=== PATIENT | female | born 1940 | race Caucasian/White ===

== ENCOUNTER 2016-04-08 08:57 | Observation (INO) | payer OTHER ==
[~2016-04-08] VITALS: Ht 162.6 cm; Wt 96.0 kg
[~2016-04-08 08:57] MED LIST: ADVAIR HFA120 INHALA IH; ALDACTONE25 MG PO; ALLOPURINOL100 MG PO; ASPIR 8181 M1 PO; ATENOLOL25 MG PO; CEFDINIR300 MG PO; CENTRUM SILVER1 EAC3 PO; CORDARONE200 MG PO; FLECAINIDE ACET50 MG PO; FURO40I IV; GLUCOPHAGE500 MG PO; GLUCOTROL5 MG PO; GUANFACINE HCL2 MG PO; LASIX20 MG PO; LASIX40 MG PO; LIPITOR20 MG PO; LISINOPRIL2.5 MG PO; LOPRESSOR25 MG PO; LOW DOSE ASPIRI81 M1 PO; METFORMIN HCL500 MG PO; NORVASC5 MG PO; PRADAXA75 MG PO; PROTONIX40 MG PO; SPIRIVA RESPIMAT4 GM IH; TENEX2 MG PO; TENORMIN50 MG PO; TYLENOL EXTRA500 MG PO; ZYLOPRIM100 MG PO
[2016-04-08 10:23] LABS: EOSINOPHIL (%) 1.5 % (0-5); EOSINOPHIL COUNT 0.2 K/uL (0-0.3); HEMATOCRIT 44.1 % (36.0-46.0); IMMATURE GRANULOCYTE (%) 0.2 % (0.0-0.7); IMMATURE GRANULOCYTE COUNT 0.2 K/uL; LYMPHOCYTE COUNT 1.6 K/uL (1.0-2.8); MCH 29.7 PG (29.0-34.0); MCHC 32.7 G/DL (30.0-36.0); MCV 90.9 FL (83-99); MEAN PLAT.VOLUME 11.4 uM^3 (9.5-12.4); MONOCYTE (%) 5.6 % (3-12); MONOCYTE COUNT 0.6 K/uL (0-0.8); NEUTROPHIL (%) 78.4 % (45-76); NEUTROPHIL COUNT 8.8 K/uL (1.8-6.4); PLATELET COUNT 287 K/uL (156-360); RBC DIS.WIDTH-CV 13.8 % (11.8-14.6); RBC DIS.WIDTH-SD 45.2 % (39-53); RED BLOOD COUNT 4.85 M/uL (3.80-5.20); WHITE BLOOD COUNT 11.2 K/uL (4.1-10.2)
[2016-04-08 10:28] LABS: CHLORIDE 101 mEq/L (99-109); SODIUM 140 mEq/L (136-147)
[2016-04-08 10:30] LABS: GLUCOSE 284 mg/dL (70-99)
[2016-04-08 10:32] LABS: ANION GAP 15 MEQ/L (2-14)
[2016-04-08 10:34] LABS: ALKALINE PHOSPHATASE 63 IU/L (3-129); GFR ESTIMATE (CALCULATED) 39 mL/min/
[2016-04-08 10:35] LABS: UREA NITROGEN (BUN) 22 mg/dL (9-23)
[2016-04-08 10:38] LABS: TROP-I INTERPRETATION NEGATIVE; TROPONIN-I < 0.01 ng/mL (0.0-0.30)
[2016-04-08 13:29] LABS: POINT-OF-CARE METER ID UU14100415
[2016-04-08] MEDS ORDERED: CENTRUM SILVER1 EAC3 PO (14:30)
[2016-04-08] MEDS ORDERED: LO-DOSE ASPIRIN81 M2 PO (14:31)
[2016-04-08] MEDS ORDERED: LIPITOR20 MG PO (14:32)
[2016-04-08] MEDS ORDERED: NORVASC5 MG PO (14:33)
[2016-04-08] MEDS ORDERED: GLUCOPHAGE500 MG PO (14:34)
[2016-04-08] MEDS ORDERED: PRADAXA75 MG PO (14:34)
[2016-04-08] MEDS ORDERED: LASIX40 MG PO (14:35)
[2016-04-08] MEDS ORDERED: INTUNIV2 MG PO (14:35)
[2016-04-08] MEDS ORDERED: TAMBOCOR50 MG PO (14:36)
[2016-04-08] MEDS ORDERED: DOCUSATE SODIU100 MG PO (14:37)
[2016-04-08] MEDS ORDERED: ALDACTONE25 MG PO (14:37)
[2016-04-08 15:00] VITALS: BP 142/75
[2016-04-08 18:24] LABS: TROP-I INTERPRETATION NEGATIVE; TROPONIN-I 0.02 ng/mL (0.0-0.30)
[2016-04-08 20:06] VITALS: BP 155/82
[2016-04-08 20:29] VITALS: BP 163/85
[2016-04-08 23:57] VITALS: BP 154/81
[2016-04-09 01:22] LABS: TROP-I INTERPRETATION NEGATIVE; TROPONIN-I 0.02 ng/mL (0.0-0.30)
[2016-04-09 04:23] VITALS: BP 148/78
[2016-04-09 07:00] LABS: HEMATOCRIT 40.5 % (36.0-46.0); MCH 30.2 PG (29.0-34.0); MCHC 32.6 G/DL (30.0-36.0); MCV 92.7 FL (83-99); MEAN PLAT.VOLUME 11.2 uM^3 (9.5-12.4); PLATELET COUNT 228 K/uL (156-360); RBC DIS.WIDTH-CV 13.7 % (11.8-14.6); RBC DIS.WIDTH-SD 46.4 % (39-53); RED BLOOD COUNT 4.37 M/uL (3.80-5.20); WHITE BLOOD COUNT 9.9 K/uL (4.1-10.2)
[2016-04-09 07:16] LABS: Estimated Average Glucose 160 mg/dL (70-123); HEMOGLOBIN A1c (GLYCOHEMOGLOB) 7.2 % HGB (Below 5.7)
[2016-04-09 07:31] LABS: ANION GAP 10 MEQ/L (2-14); CHLORIDE 99 MEQ/L (99-109); GFR ESTIMATE (CALCULATED) 51 mL/min/; POTASSIUM 3.7 MEQ/L (3.7-5.4); SAMPLE HEMOLYSIS CHECK 0; SAMPLE ICTERIC CHECK 0; SAMPLE LIPEMIA CHECK 0; SODIUM 142 MEQ/L (136-147); UREA NITROGEN (BUN) 23 mg/dL (9-23)
[2016-04-09 07:34] LABS: GLUCOSE 135 mg/dL (70-99)
[2016-04-09 07:46] LABS: POINT-OF-CARE METER ID UU14174216
[2016-04-09 08:20] VITALS: BP 145/69
[2016-04-09 11:29] LABS: POINT-OF-CARE METER ID UU13113698
[2016-04-09 13:00] VITALS: BP 131/67
== END 2016-04-09 15:05 | disposition home or self-care (01) ==
LOC: EME 08:57 → 4EAST 12:39 → EDOF 12:39 → 4EAST 12:39
PROVIDERS: Emergency Medicine; Internal Medicine
DX: I48.91 Unspecified atrial fibrillation (principal); I13.0 Hypertensive heart and chronic kidney disease with heart failure and stage 1 through stage 4 chronic kidney disease, or unspecified chronic kidney disease; I50.30 Unspecified diastolic (congestive) heart failure; J96.01 Acute respiratory failure with hypoxia; E11.22 Type 2 diabetes mellitus with diabetic chronic kidney disease; N18.3 Chronic kidney disease, stage 3 (moderate); E78.5 Hyperlipidemia, unspecified; E66.9 Obesity, unspecified; Z79.82 Long term (current) use of aspirin
CPT/HCPCS: 71010; 80048; 80053; 82948; 83036; 83880; 84484; 85025; 85027; 93005; 94799; 99281; 99285; G0378; J1815; J1940

== ENCOUNTER 2016-12-07 19:29 | Inpatient (IN) | payer OTHER ==
[~2016-12-07] VITALS: Ht 165.1 cm; Wt 92.8 kg
[~2016-12-07 19:29] MED LIST changes: +DOCUSATE SODIU100 MG PO; +INTUNIV2 MG PO; +LO-DOSE ASPIRIN81 M2 PO; +TAMBOCOR50 MG PO
[2016-12-07 20:20] LABS: MCH 30.1 PG (29.0-34.0); MCV 93.9 FL (83-99); MEAN PLAT.VOLUME 10.5 uM^3 (9.5-12.4); PLATELET COUNT 271 K/uL (156-360); RBC DIS.WIDTH-CV 13.1 % (11.8-14.6); RBC DIS.WIDTH-SD 44.9 % (39-53); RED BLOOD COUNT 5.22 M/uL (3.80-5.20); WHITE BLOOD COUNT 11.8 K/uL (4.1-10.2)
[2016-12-07 20:33] LABS: CHLORIDE 99 mEq/L (99-109); POTASSIUM 4.5 mEq/L (3.7-5.4); SODIUM 142 mEq/L (136-147)
[2016-12-07 20:35] LABS: GLUCOSE 119 mg/dL (70-99)
[2016-12-07 20:37] LABS: ANION GAP 18 MEQ/L (2-14)
[2016-12-07 20:39] LABS: D-DIMER ELISA < 150.00 ng/mLDDU (<230); GFR ESTIMATE (CALCULATED) 57 mL/min/
[2016-12-07 20:40] LABS: UREA NITROGEN (BUN) 18 mg/dL (9-23)
[2016-12-07 20:44] LABS: TROP-I INTERPRETATION NEGATIVE; TROPONIN-I < 0.01 ng/mL (0.0-0.30)
[2016-12-07 23:52] LABS: ADD MIUA? YES; BILIRUBIN NEGATIVE; BLOOD SMALL; COLOR STRAW ((YELLOW)); GLUCOSE (STRIP) NEGATIVE; KETONES NEGATIVE; LEUKOCYTES TRACE; NITRITE NEGATIVE; PROTEIN (STRIP) NEGATIVE; SPECIFIC GRAVITY 1.009 (1.000-1.030); UROBILINOGEN 0.2 MG/DL (0.2-1.0)
[2016-12-07 23:54] LABS: BACTERIA NONE SEEN /HPF; EPITHELIAL CELLS RARE /HPF; HYALINE CASTS 0-5 /LPF; MUCUS TRACE /LPF; RED BLOOD CELLS 0-5 /HPF (0-5); UCUL ADDED? NO; WHITE BLOOD CELLS 0-5 /HPF (0-5)
[2016-12-08 01:27] LABS: MAGNESIUM 1.6 mg/dl (1.3-2.7); SAMPLE HEMOLYSIS CHECK 1; SAMPLE ICTERIC CHECK 0; SAMPLE LIPEMIA CHECK 0
[2016-12-08 01:32] LABS: HDL CHOLESTEROL 59 MG/DL (Desirable>=50); LDL CHOLESTEROL 69 mg/dL (Desirable<100); NON-HDL CHOLESTEROL 100 mg/dL (Desirable<160); TOTAL CHOLESTEROL 159 mg/dL (Desirable<200); TRIGLYCERIDES 153 MG/DL (Normal: <150)
[2016-12-08 02:01] VITALS: BP 141/89
[2016-12-08 05:41] LABS: TROP-I INTERPRETATION NEGATIVE; TROPONIN-I < 0.01 ng/mL (0.0-0.30)
[2016-12-08 07:59] VITALS: BP 112/78
[2016-12-08 11:30] VITALS: BP 100/67
[2016-12-08 12:27] LABS: TROP-I INTERPRETATION NEGATIVE; TROPONIN-I 0.02 ng/mL (0.0-0.30)
[2016-12-08 16:37] LABS: POINT-OF-CARE METER ID UU14314088
[2016-12-08 16:56] VITALS: BP 121/89
[2016-12-08 20:00] VITALS: BP 136/98
[2016-12-08 22:37] LABS: ANION GAP 9 MEQ/L (2-14); CHLORIDE 97 MEQ/L (99-109); POTASSIUM 4.5 MEQ/L (3.7-5.4); SAMPLE HEMOLYSIS CHECK 0; SAMPLE ICTERIC CHECK 0; SAMPLE LIPEMIA CHECK 0; SODIUM 138 MEQ/L (136-147)
[2016-12-08 22:42] LABS: GFR ESTIMATE (CALCULATED) 46 mL/min/; GLUCOSE 170 mg/dL (70-99); UREA NITROGEN (BUN) 25 mg/dL (9-23)
[2016-12-08 23:43] LABS: ADD MIUA? YES; BILIRUBIN NEGATIVE; BLOOD SMALL; COLOR YELLOW ((YELLOW)); GLUCOSE (STRIP) NEGATIVE; KETONES NEGATIVE; LEUKOCYTES LARGE; NITRITE NEGATIVE; PROTEIN (STRIP) 30; SPECIFIC GRAVITY 1.017 (1.000-1.030); UROBILINOGEN 0.2 MG/DL (0.2-1.0)
[2016-12-09 00:03] LABS: BACTERIA 2+ /HPF; CASTS NONE SEEN /LPF; CRYSTALS NONE SEEN; EPITHELIAL CELLS RARE /HPF; MUCUS NONE SEEN /LPF; RED BLOOD CELLS 0-5 /HPF (0-5); UCUL ADDED? YES; WHITE BLOOD CELLS TNTC /HPF (0-5)
[2016-12-09 03:06] VITALS: BP 114/82
[2016-12-09 05:49] LABS: HEMATOCRIT 41.6 % (36.0-46.0); MCH 30.4 PG (29.0-34.0); MCHC 32.5 G/DL (30.0-36.0); MCV 93.7 FL (83-99); MEAN PLAT.VOLUME 10.7 uM^3 (9.5-12.4); PLATELET COUNT 224 K/uL (156-360); RBC DIS.WIDTH-CV 13.2 % (11.8-14.6); RBC DIS.WIDTH-SD 44.9 % (39-53); RED BLOOD COUNT 4.44 M/uL (3.80-5.20)
[2016-12-09 05:50] LABS: ALKALINE PHOSPHATASE 48 IU/L (3-129); ANION GAP 9 MEQ/L (2-14); CHLORIDE 98 MEQ/L (99-109); GFR ESTIMATE (CALCULATED) 46 mL/min/; GLUCOSE 187 mg/dL (70-99); POTASSIUM 3.9 MEQ/L (3.7-5.4); SAMPLE HEMOLYSIS CHECK 0; SAMPLE ICTERIC CHECK 0; SAMPLE LIPEMIA CHECK 0; SODIUM 140 MEQ/L (136-147); TOTAL BILIRUBIN 0.7 MG/DL (0.0-1.0); UREA NITROGEN (BUN) 23 mg/dL (9-23)
[2016-12-09 08:00] VITALS: BP 120/75
[2016-12-09 12:00] VITALS: BP 137/77
[2016-12-09 15:00] VITALS: BP 134/74
[2016-12-09 17:57] LABS: TROP-I INTERPRETATION NEGATIVE; TROPONIN-I 0.03 ng/mL (0.0-0.30)
[2016-12-09 19:14] VITALS: BP 116/78
[2016-12-09 23:08] VITALS: BP 99/57
[2016-12-10 03:48] VITALS: BP 102/62
[2016-12-10 07:10] VITALS: BP 102/56
[2016-12-10 07:58] LABS: TROP-I INTERPRETATION NEGATIVE; TROPONIN-I 0.03 ng/mL (0.0-0.30)
[2016-12-10 12:05] VITALS: BP 104/74
[2016-12-10 16:05] VITALS: BP 102/65
[2016-12-10 18:45] VITALS: BP 113/62
[2016-12-10 23:15] VITALS: BP 101/67
[2016-12-11 03:10] VITALS: BP 121/55
[2016-12-11 07:45] VITALS: BP 119/58
[2016-12-11] MEDS ORDERED: LOPRESSOR25 MG PO (10:22)
[2016-12-11] MEDS ORDERED: DILTIAZEM 24HR180 MG PO (10:22)
[2016-12-11] MEDS ORDERED: AUGMENTIN875 MG PO (10:23)
[2016-12-11 11:00] VITALS: BP 116/58
== END 2016-12-11 13:42 | disposition home or self-care (01) | DRG 309 ==
LOC: EME 19:29 → 4EAST 23:48 → EDOF 23:48 → ENRESERV 23:51 → 4EAST 12-08 02:00
PROVIDERS: Emergency Medicine; Hospitalist; Internal Medicine; Internal Medicine Cardiovascular Disease
DX: I48.1 Persistent atrial fibrillation (principal); I48.2 Chronic atrial fibrillation; N39.0 Urinary tract infection, site not specified; Z99.81 Dependence on supplemental oxygen; I11.0 Hypertensive heart disease with heart failure; I50.32 Chronic diastolic (congestive) heart failure; I27.20 Pulmonary hypertension, unspecified; J98.6 Disorders of diaphragm; K21.9 Gastro-esophageal reflux disease without esophagitis; E05.90 Thyrotoxicosis, unspecified without thyrotoxic crisis or storm; E11.9 Type 2 diabetes mellitus without complications; E78.00 Pure hypercholesterolemia, unspecified; E78.5 Hyperlipidemia, unspecified; M25.511 Pain in right shoulder; M25.512 Pain in left shoulder; E66.9 Obesity, unspecified; Z68.33 Body mass index [BMI] 33.0-33.9, adult; Z82.3 Family history of stroke
CPT/HCPCS: 71010; 80048; 80053; 80061; 81003; 82948; 83735; 83880; 84439; 84443; 84481; 84484; 85027; 85379; 87077; 87086; 87186; 93005; 93306; 94799; 99281; 99285; J0696; J1160; J1940; J2405; J7050

== ENCOUNTER 2016-12-19 23:38 | Inpatient (IN) | payer OTHER ==
[~2016-12-19] VITALS: Ht 167.6 cm; Wt 94.7 kg
[~2016-12-19 23:38] MED LIST changes: +AUGMENTIN875 MG PO; +DILTIAZEM 24HR180 MG PO
[2016-12-20 00:18] LABS: HEMATOCRIT 42.7 % (36.0-46.0); MCH 30.7 PG (29.0-34.0); MCHC 32.6 G/DL (30.0-36.0); MCV 94.3 FL (83-99); MEAN PLAT.VOLUME 10.9 uM^3 (9.5-12.4); PLATELET COUNT 278 K/uL (156-360); RBC DIS.WIDTH-CV 13.6 % (11.8-14.6); RBC DIS.WIDTH-SD 46.8 % (39-53); RED BLOOD COUNT 4.53 M/uL (3.80-5.20); WHITE BLOOD COUNT 13.6 K/uL (4.1-10.2)
[2016-12-20 00:23] LABS: INTER. NORMALIZED RATIO 1.3; PROTHROMBIN TIME 14.7 SEC (10.2-12.9)
[2016-12-20 00:38] LABS: CHLORIDE 102 mEq/L (99-109); POTASSIUM 4.4 mEq/L (3.7-5.4); SODIUM 139 mEq/L (136-147); TROP-I INTERPRETATION NEGATIVE; TROPONIN-I < 0.01 ng/mL (0.0-0.30)
[2016-12-20 00:40] LABS: GLUCOSE 203 mg/dL (70-99)
[2016-12-20 00:41] LABS: ANION GAP 12 MEQ/L (2-14)
[2016-12-20 00:44] LABS: GFR ESTIMATE (CALCULATED) 39 mL/min/
[2016-12-20 00:45] LABS: UREA NITROGEN (BUN) 33 mg/dL (9-23)
[2016-12-20] MEDS ORDERED: DILTIAZEM 24HR180 MG PO (01:50)
[2016-12-20 03:00] LABS: TOTAL BILIRUBIN 0.6 mg/dL (0.0-1.0)
[2016-12-20 03:01] LABS: ALKALINE PHOSPHATASE 80 IU/L (3-129)
[2016-12-20 03:04] LABS: DIRECT BILIRUBIN 0.2 mg/dL (0.0-0.3)
[2016-12-20 03:48] VITALS: BP 131/89
[2016-12-20 06:29] LABS: HEMATOCRIT 41.3 % (36.0-46.0); MCH 30.2 PG (29.0-34.0); MCV 94.5 FL (83-99); MEAN PLAT.VOLUME 12.2 uM^3 (9.5-12.4); NRBC (%) 0.3 /100 WBC (0-0); PLATELET COUNT 244 K/uL (156-360); RBC DIS.WIDTH-CV 13.7 % (11.8-14.6); RBC DIS.WIDTH-SD 46.9 % (39-53); RED BLOOD COUNT 4.37 M/uL (3.80-5.20); WHITE BLOOD COUNT 13.7 K/uL (4.1-10.2)
[2016-12-20 06:53] LABS: ANION GAP 9 MEQ/L (2-14); CHLORIDE 102 MEQ/L (99-109); GFR ESTIMATE (CALCULATED) 39 mL/min/; GLUCOSE 161 mg/dL (70-99); POTASSIUM 4.2 MEQ/L (3.7-5.4); SAMPLE HEMOLYSIS CHECK 0; SAMPLE ICTERIC CHECK 0; SAMPLE LIPEMIA CHECK 0; SODIUM 142 MEQ/L (136-147); UREA NITROGEN (BUN) 34 mg/dL (9-23)
[2016-12-20 06:55] LABS: TROP-I INTERPRETATION NEGATIVE; TROPONIN-I < 0.01 ng/mL (0.0-0.30)
[2016-12-20 07:17] VITALS: BP 113/74
[2016-12-20 07:29] LABS: ADD MIUA? YES; BILIRUBIN NEGATIVE; BLOOD NEGATIVE; COLOR YELLOW ((YELLOW)); GLUCOSE (STRIP) NEGATIVE; KETONES NEGATIVE; LEUKOCYTES MODERATE; NITRITE NEGATIVE; PROTEIN (STRIP) NEGATIVE; UROBILINOGEN 0.2 MG/DL (0.2-1.0)
[2016-12-20 07:41] LABS: POINT-OF-CARE METER ID UU13113781
[2016-12-20 07:45] LABS: BACTERIA RARE /HPF; EPITHELIAL CELLS RARE /HPF; HYALINE CASTS 20-30 /LPF; MUCUS TRACE /LPF; RED BLOOD CELLS 0-5 /HPF (0-5); WHITE BLOOD CELLS CLUMP RARE /HPF (0-5)
[2016-12-20 11:59] LABS: POINT-OF-CARE METER ID UU14174216
[2016-12-20 12:19] LABS: TROP-I INTERPRETATION NEGATIVE; TROPONIN-I < 0.01 ng/mL (0.0-0.30)
[2016-12-20 12:54] VITALS: BP 121/77
[2016-12-20 15:29] VITALS: BP 123/75
[2016-12-20 16:03] LABS: METH RESISTANT S AUREUS PCR NEGATIVE (NEGATIVE)
[2016-12-20 16:04] LABS: PROBE CHECK PASS; SPECIMEN PROCESSING CONTROL PASS
[2016-12-20 17:03] LABS: POINT-OF-CARE METER ID UU13113781
[2016-12-20 19:30] VITALS: BP 118/83
[2016-12-20 20:46] LABS: POINT-OF-CARE METER ID UU13113698
[2016-12-20 23:30] VITALS: BP 112/77
[2016-12-21 03:45] VITALS: BP 124/88
[2016-12-21 08:15] LABS: POINT-OF-CARE METER ID UU13113698; POINT-OF-CARE USER ID NUTSLF44
[2016-12-21 08:31] LABS: ANION GAP 9 MEQ/L (2-14); CHLORIDE 99 MEQ/L (99-109); SAMPLE HEMOLYSIS CHECK 0; SAMPLE ICTERIC CHECK 0; SAMPLE LIPEMIA CHECK 0; SODIUM 138 MEQ/L (136-147)
[2016-12-21 08:36] LABS: GFR ESTIMATE (CALCULATED) 42 mL/min/; GLUCOSE 160 mg/dL (70-99); UREA NITROGEN (BUN) 34 mg/dL (9-23)
[2016-12-21 11:53] LABS: POINT-OF-CARE METER ID UU13113698; POINT-OF-CARE USER ID NUTSLF44
[2016-12-21 12:37] VITALS: BP 129/86
[2016-12-21 15:44] VITALS: BP 130/92
[2016-12-21 16:58] VITALS: BP 155/89
[2016-12-21 17:35] LABS: POINT-OF-CARE METER ID UU14174216; POINT-OF-CARE USER ID NUTSLF44
[2016-12-21 21:17] LABS: POINT-OF-CARE METER ID UU14174216
[2016-12-21 23:00] VITALS: BP 137/92
[2016-12-22 03:50] VITALS: BP 135/77
[2016-12-22 06:03] LABS: ANION GAP 12 MEQ/L (2-14); CHLORIDE 101 MEQ/L (99-109); GFR ESTIMATE (CALCULATED) 39 mL/min/; GLUCOSE 166 mg/dL (70-99); POTASSIUM 4.2 MEQ/L (3.7-5.4); SAMPLE HEMOLYSIS CHECK 0; SAMPLE ICTERIC CHECK 0; SAMPLE LIPEMIA CHECK 0; SODIUM 141 MEQ/L (136-147); UREA NITROGEN (BUN) 36 mg/dL (9-23)
[2016-12-22 07:35] LABS: POINT-OF-CARE METER ID UU13113781
[2016-12-22 09:10] VITALS: BP 124/84
[2016-12-22 11:20] LABS: POINT-OF-CARE METER ID UU13113781
[2016-12-22 11:40] VITALS: BP 126/76
[2016-12-22 11:57] LABS: EOSINOPHIL (%) 1.4 % (0-5); EOSINOPHIL COUNT 0.2 K/uL (0-0.3); HEMATOCRIT 42.4 % (36.0-46.0); IMMATURE GRANULOCYTE (%) 0.5 % (0.0-0.7); IMMATURE GRANULOCYTE COUNT 0.1 K/uL; INSTRUMENT ABS NEUTROPHIL CT 10.8 K/uL; MCH 30.6 PG (29.0-34.0); MCHC 31.6 G/DL (30.0-36.0); MCV 96.8 FL (83-99); MEAN PLAT.VOLUME 10.8 uM^3 (9.5-12.4); MONOCYTE (%) 8.1 % (3-12); MONOCYTE COUNT 1.1 K/uL (0-0.8); NEUTROPHIL (%) 82.2 % (45-76); NEUTROPHIL COUNT 10.8 K/uL (1.8-6.4); PLATELET COUNT 254 K/uL (156-360); RBC DIS.WIDTH-CV 13.7 % (11.8-14.6); RBC DIS.WIDTH-SD 48.6 % (39-53); RED BLOOD COUNT 4.38 M/uL (3.80-5.20); WHITE BLOOD COUNT 13.1 K/uL (4.1-10.2)
[2016-12-22 12:18] LABS: ALKALINE PHOSPHATASE 64 IU/L (3-129); ANION GAP 8 MEQ/L (2-14); CHLORIDE 101 MEQ/L (99-109); GFR ESTIMATE (CALCULATED) 42 mL/min/; GLUCOSE 145 mg/dL (70-99); POTASSIUM 4.4 MEQ/L (3.7-5.4); SAMPLE HEMOLYSIS CHECK 0; SAMPLE ICTERIC CHECK 0; SAMPLE LIPEMIA CHECK 0; SODIUM 142 MEQ/L (136-147); TOTAL BILIRUBIN 0.8 MG/DL (0.0-1.0); UREA NITROGEN (BUN) 34 mg/dL (9-23)
[2016-12-22 16:23] LABS: POINT-OF-CARE METER ID UU14174216
[2016-12-22 16:55] VITALS: BP 119/87
[2016-12-22 20:00] VITALS: BP 135/90
[2016-12-22 21:05] LABS: POINT-OF-CARE METER ID UU13113698
[2016-12-23] VITALS (7 sets, daily range): BP systolic 104–133; BP diastolic 70–89
[2016-12-23 08:00] LABS: POINT-OF-CARE METER ID UU14174216; POINT-OF-CARE USER ID ENVKC36
[2016-12-23 11:46] LABS: POINT-OF-CARE METER ID UU13113781; POINT-OF-CARE USER ID ENVKC36
[2016-12-23 16:48] LABS: POINT-OF-CARE METER ID UU14174216; POINT-OF-CARE USER ID ENVKC36
[2016-12-23 21:37] LABS: POINT-OF-CARE METER ID UU14174216
[2016-12-24] VITALS (23 sets, daily range): BP systolic 97–159; BP diastolic 74–116
[2016-12-24 04:28] LABS: BASOPHIL COUNT 0.1 K/uL (0-0.1); EOSINOPHIL (%) 1.2 % (0-5); EOSINOPHIL COUNT 0.2 K/uL (0-0.3); HEMATOCRIT 43.9 % (36.0-46.0); IMMATURE GRANULOCYTE (%) 0.5 % (0.0-0.7); IMMATURE GRANULOCYTE COUNT 0.1 K/uL; INSTRUMENT ABS NEUTROPHIL CT 14.4 K/uL; MCH 30.1 PG (29.0-34.0); MCHC 31.4 G/DL (30.0-36.0); MCV 95.6 FL (83-99); MEAN PLAT.VOLUME 10.9 uM^3 (9.5-12.4); MONOCYTE (%) 7.4 % (3-12); MONOCYTE COUNT 1.3 K/uL (0-0.8); NEUTROPHIL (%) 84.5 % (45-76); NEUTROPHIL COUNT 14.4 K/uL (1.8-6.4); PLATELET COUNT 252 K/uL (156-360); RBC DIS.WIDTH-CV 13.8 % (11.8-14.6); RED BLOOD COUNT 4.59 M/uL (3.80-5.20)
[2016-12-24 04:35] LABS: CHLORIDE 103 mEq/L (99-109); POTASSIUM 4.4 mEq/L (3.7-5.4); SODIUM 142 mEq/L (136-147)
[2016-12-24 04:37] LABS: GLUCOSE 192 mg/dL (70-99)
[2016-12-24 04:39] LABS: ANION GAP 10 MEQ/L (2-14)
[2016-12-24 04:41] LABS: GFR ESTIMATE (CALCULATED) 46 mL/min/
[2016-12-24 04:42] LABS: UREA NITROGEN (BUN) 36 mg/dL (9-23)
[2016-12-24 05:22] LABS: TROP-I INTERPRETATION NEGATIVE; TROPONIN-I 0.01 ng/mL (0.0-0.30)
[2016-12-24 08:12] LABS: POINT-OF-CARE METER ID UU13113781
[2016-12-24 08:18] LABS: BASE EXCESS 5.8 mEq/L (-3 to +3); CARBOXY HGB 2.4 % (0-5); METHEMOGLOBIN 1.7 % (0-1.5); PO2 52 mm Hg (80-100); pH 7.37 (7.35-7.45)
[2016-12-24 08:19] LABS: COMMENTS - BLOOD GASES A+C+; DEVICE NRBM; O2 FLOW 15 L/MIN; PCO2 57 mm Hg (35-45); SITE RR; TOTAL RESP RATE 24 resp/min
[2016-12-24 09:24] LABS: POINT-OF-CARE METER ID UU13113803
[2016-12-24 13:35] LABS: METH RESISTANT S AUREUS PCR NEGATIVE (NEGATIVE)
[2016-12-24 13:40] LABS: PROBE CHECK PASS; SPECIMEN PROCESSING CONTROL PASS
[2016-12-24 14:08] LABS: POINT-OF-CARE METER ID UU13113803
[2016-12-24 17:49] LABS: POINT-OF-CARE METER ID UU13113803
[2016-12-24 23:38] LABS: POINT-OF-CARE METER ID UU14208751
[2016-12-25] VITALS (20 sets, daily range): BP systolic 118–165; BP diastolic 69–125
[2016-12-25 05:32] LABS: POINT-OF-CARE METER ID UU13113731
[2016-12-25 05:53] LABS: EOSINOPHIL (%) 0 % (0-5); HEMATOCRIT 41.2 % (36.0-46.0); IMMATURE GRANULOCYTE (%) 0.5 % (0.0-0.7); IMMATURE GRANULOCYTE COUNT 0.1 K/uL; INSTRUMENT ABS NEUTROPHIL CT 12.4 K/uL; LYMPHOCYTE COUNT 0.4 K/uL (1.0-2.8); MCH 30.8 PG (29.0-34.0); MEAN PLAT.VOLUME 11.4 uM^3 (9.5-12.4); MONOCYTE (%) 4.5 % (3-12); MONOCYTE COUNT 0.6 K/uL (0-0.8); NEUTROPHIL (%) 92.2 % (45-76); NEUTROPHIL COUNT 12.4 K/uL (1.8-6.4); PLATELET COUNT 253 K/uL (156-360); RBC DIS.WIDTH-CV 13.9 % (11.8-14.6); RBC DIS.WIDTH-SD 47.8 % (39-53); RED BLOOD COUNT 4.29 M/uL (3.80-5.20); WHITE BLOOD COUNT 13.4 K/uL (4.1-10.2)
[2016-12-25 06:38] LABS: ANION GAP 9 MEQ/L (2-14); CHLORIDE 103 MEQ/L (99-109); GFR ESTIMATE (CALCULATED) 51 mL/min/; GLUCOSE 217 mg/dL (70-99); POTASSIUM 4.3 MEQ/L (3.7-5.4); SAMPLE HEMOLYSIS CHECK 0; SAMPLE ICTERIC CHECK 0; SAMPLE LIPEMIA CHECK 0; SODIUM 144 MEQ/L (136-147); UREA NITROGEN (BUN) 46 mg/dL (9-23)
[2016-12-25 08:38] LABS: INTERNAL CONTROL VALID? YES
[2016-12-25 12:12] LABS: POINT-OF-CARE METER ID UU14314082
[2016-12-25 16:58] LABS: POINT-OF-CARE METER ID UU14314082
[2016-12-25 22:24] LABS: POINT-OF-CARE METER ID UU14314082
[2016-12-26] VITALS (20 sets, daily range): BP systolic 95–168; BP diastolic 72–102
[2016-12-26 08:42] LABS: POINT-OF-CARE METER ID UU14174217
[2016-12-26 10:31] LABS: HEMATOCRIT 42.8 % (36.0-46.0); MCH 31.1 PG (29.0-34.0); MCHC 31.8 G/DL (30.0-36.0); MCV 97.9 FL (83-99); MEAN PLAT.VOLUME 11.2 uM^3 (9.5-12.4); PLATELET COUNT 259 K/uL (156-360); RBC DIS.WIDTH-CV 14.1 % (11.8-14.6); RBC DIS.WIDTH-SD 50.2 % (39-53); RED BLOOD COUNT 4.37 M/uL (3.80-5.20); WHITE BLOOD COUNT 17.9 K/uL (4.1-10.2)
[2016-12-26 10:59] LABS: ANION GAP 9 MEQ/L (2-14); CHLORIDE 98 MEQ/L (99-109); GFR ESTIMATE (CALCULATED) 46 mL/min/; POTASSIUM 4.5 MEQ/L (3.7-5.4); SAMPLE HEMOLYSIS CHECK 1; SAMPLE ICTERIC CHECK 0; SAMPLE LIPEMIA CHECK 0; SODIUM 141 MEQ/L (136-147); UREA NITROGEN (BUN) 49 mg/dL (9-23)
[2016-12-26 11:04] LABS: GLUCOSE 327 mg/dL (70-99)
[2016-12-26 12:15] LABS: POINT-OF-CARE METER ID UU14174217
[2016-12-26 16:49] LABS: ADD MIUA? YES; BILIRUBIN NEGATIVE; BLOOD SMALL; COLOR YELLOW ((YELLOW)); GLUCOSE (STRIP) 50; KETONES NEGATIVE; LEUKOCYTES NEGATIVE; NITRITE NEGATIVE; PROTEIN (STRIP) 30; SPECIFIC GRAVITY 1.017 (1.000-1.030); UROBILINOGEN 0.2 MG/DL (0.2-1.0)
[2016-12-26 16:55] LABS: BACTERIA RARE /HPF; EPITHELIAL CELLS NONE SEEN /HPF; MUCUS TRACE /LPF; RED BLOOD CELLS 20-30 /HPF (0-5); UCUL ADDED? NO; WHITE BLOOD CELLS 0-5 /HPF (0-5)
[2016-12-26 18:18] LABS: POINT-OF-CARE METER ID UU14208751
[2016-12-26 22:30] LABS: POINT-OF-CARE METER ID UU13113803
[2016-12-27] VITALS (24 sets, daily range): BP systolic 88–138; BP diastolic 53–108
[2016-12-27 05:15] LABS: EOSINOPHIL (%) 2.2 % (0-5); EOSINOPHIL COUNT 0.3 K/uL (0-0.3); HEMATOCRIT 39.2 % (36.0-46.0); IMMATURE GRANULOCYTE (%) 0.4 % (0.0-0.7); IMMATURE GRANULOCYTE COUNT 0.1 K/uL; INSTRUMENT ABS NEUTROPHIL CT 9.6 K/uL; LYMPHOCYTE COUNT 1.1 K/uL (1.0-2.8); MCH 29.7 PG (29.0-34.0); MCHC 31.4 G/DL (30.0-36.0); MCV 94.7 FL (83-99); MEAN PLAT.VOLUME 11.5 uM^3 (9.5-12.4); MONOCYTE (%) 9.3 % (3-12); MONOCYTE COUNT 1.1 K/uL (0-0.8); NEUTROPHIL COUNT 9.6 K/uL (1.8-6.4); PLATELET COUNT 215 K/uL (156-360); RBC DIS.WIDTH-CV 13.7 % (11.8-14.6); RBC DIS.WIDTH-SD 47.7 % (39-53); RED BLOOD COUNT 4.14 M/uL (3.80-5.20); WHITE BLOOD COUNT 12.1 K/uL (4.1-10.2)
[2016-12-27 06:53] LABS: DIGOXIN 1.5 ng/mL (0.8-2.0)
[2016-12-27 07:08] LABS: ANION GAP 8 MEQ/L (2-14); CHLORIDE 103 MEQ/L (99-109); GFR ESTIMATE (CALCULATED) 51 mL/min/; POTASSIUM 4.1 MEQ/L (3.7-5.4); SAMPLE HEMOLYSIS CHECK 0; SAMPLE ICTERIC CHECK 0; SAMPLE LIPEMIA CHECK 0; SODIUM 144 MEQ/L (136-147); UREA NITROGEN (BUN) 52 mg/dL (9-23)
[2016-12-27 07:14] LABS: GLUCOSE 151 mg/dL (70-99)
[2016-12-27 10:28] LABS: BASE EXCESS 11.6 mEq/L (-3 to +3); BICARBONATE 36.6 mEq/L (22-26); CARBOXY HGB 2.3 % (0-5); METHEMOGLOBIN 1.5 % (0-1.5); PO2 55 mm Hg (80-100)
[2016-12-27 10:29] LABS: COMMENTS - BLOOD GASES C+A+; DEVICE VENTILATOR; FI02 100 %; MECHANICAL RATE 12 resp/min; MODE SIMV; PCO2 48 mm Hg (35-45); PEEP 5 CM/H20; PRES. SUPPORT 18 CM/H2O; SITE RR; TIDAL VOLUME 500 ML; TOTAL RESP RATE 16 resp/min; pH 7.49 (7.35-7.45)
[2016-12-27 11:20] LABS: BASE EXCESS 11.2 mEq/L (-3 to +3); BICARBONATE 35.1 mEq/L (22-26); CARBOXY HGB 2.1 % (0-5); METHEMOGLOBIN 1.8 % (0-1.5); PO2 62 mm Hg (80-100); pH 7.53 (7.35-7.45)
[2016-12-27 11:21] LABS: COMMENTS - BLOOD GASES C+A+; DEVICE VENTILATOR; FI02 100 %; MECHANICAL RATE 12 resp/min; MODE AC; PCO2 42 mm Hg (35-45); PEEP 10 CM/H20; SITE RR; TIDAL VOLUME 650 ML; TOTAL RESP RATE 12 resp/min
[2016-12-27 11:55] LABS: POINT-OF-CARE METER ID UU13113748
[2016-12-27 15:11] LABS: INTER. NORMALIZED RATIO 1.4; PROTHROMBIN TIME 15.6 SEC (10.2-12.9)
[2016-12-27 15:14] LABS: PTT 36.9 SEC (25-37)
[2016-12-27 15:31] LABS: POINT-OF-CARE METER ID UU13113748
[2016-12-27 21:36] LABS: POINT-OF-CARE METER ID UU13113748
[2016-12-28] VITALS (24 sets, daily range): BP systolic 96–152; BP diastolic 65–101
[2016-12-28 04:30] LABS: EOSINOPHIL (%) 2.3 % (0-5); EOSINOPHIL COUNT 0.3 K/uL (0-0.3); HEMATOCRIT 38.3 % (36.0-46.0); IMMATURE GRANULOCYTE (%) 0.4 % (0.0-0.7); IMMATURE GRANULOCYTE COUNT 0.1 K/uL; INSTRUMENT ABS NEUTROPHIL CT 9.9 K/uL; LYMPHOCYTE COUNT 1.2 K/uL (1.0-2.8); MCH 30.1 PG (29.0-34.0); MCHC 32.1 G/DL (30.0-36.0); MCV 93.9 FL (83-99); MEAN PLAT.VOLUME 11.4 uM^3 (9.5-12.4); MONOCYTE COUNT 1.3 K/uL (0-0.8); NEUTROPHIL (%) 77.6 % (45-76); NEUTROPHIL COUNT 9.9 K/uL (1.8-6.4); PLATELET COUNT 190 K/uL (156-360); RED BLOOD COUNT 4.08 M/uL (3.80-5.20); WHITE BLOOD COUNT 12.8 K/uL (4.1-10.2)
[2016-12-28 04:47] LABS: CHLORIDE 103 mEq/L (99-109); POTASSIUM 3.9 mEq/L (3.7-5.4); SODIUM 144 mEq/L (136-147)
[2016-12-28 04:48] LABS: GLUCOSE 164 mg/dL (70-99)
[2016-12-28 04:50] LABS: ANION GAP 13 MEQ/L (2-14)
[2016-12-28 04:52] LABS: GFR ESTIMATE (CALCULATED) 51 mL/min/
[2016-12-28 04:53] LABS: UREA NITROGEN (BUN) 46 mg/dL (9-23)
[2016-12-28 06:40] LABS: POINT-OF-CARE METER ID UU14162636
[2016-12-28 11:41] LABS: POINT-OF-CARE METER ID UU14162636
[2016-12-28 17:04] LABS: POINT-OF-CARE METER ID UU14162636
[2016-12-28 21:21] LABS: POINT-OF-CARE METER ID UU14174217
[2016-12-29] VITALS (23 sets, daily range): BP systolic 79–153; BP diastolic 44–130
[2016-12-29 05:55] LABS: ANION GAP 12 MEQ/L (2-14); CHLORIDE 100 MEQ/L (99-109); GFR ESTIMATE (CALCULATED) 51 mL/min/; GLUCOSE 289 mg/dL (70-99); MAGNESIUM 2.1 mg/dl (1.3-2.7); POTASSIUM 4.3 MEQ/L (3.7-5.4); SAMPLE HEMOLYSIS CHECK 1; SAMPLE ICTERIC CHECK 0; SAMPLE LIPEMIA CHECK 0; SODIUM 140 MEQ/L (136-147); UREA NITROGEN (BUN) 44 mg/dL (9-23)
[2016-12-29 12:07] LABS: POINT-OF-CARE METER ID UU14162636
[2016-12-29 18:09] LABS: POINT-OF-CARE METER ID UU13113731
[2016-12-30] VITALS (20 sets, daily range): BP systolic 82–140; BP diastolic 45–85
[2016-12-30 00:26] LABS: POINT-OF-CARE METER ID UU14162636
[2016-12-30 04:35] LABS: EOSINOPHIL (%) 4.3 % (0-5); EOSINOPHIL COUNT 0.7 K/uL (0-0.3); HEMATOCRIT 42.6 % (36.0-46.0); IMMATURE GRANULOCYTE (%) 0.8 % (0.0-0.7); IMMATURE GRANULOCYTE COUNT 0.1 K/uL; INSTRUMENT ABS NEUTROPHIL CT 12.1 K/uL; MCH 30.3 PG (29.0-34.0); MCHC 31.2 G/DL (30.0-36.0); MEAN PLAT.VOLUME 12.1 uM^3 (9.5-12.4); MONOCYTE (%) 10.7 % (3-12); MONOCYTE COUNT 1.7 K/uL (0-0.8); NEUTROPHIL (%) 77.7 % (45-76); NEUTROPHIL COUNT 12.1 K/uL (1.8-6.4); PLATELET COUNT 169 K/uL (156-360); RBC DIS.WIDTH-CV 14.3 % (11.8-14.6); RBC DIS.WIDTH-SD 50.3 % (39-53); RED BLOOD COUNT 4.39 M/uL (3.80-5.20); WHITE BLOOD COUNT 15.5 K/uL (4.1-10.2)
[2016-12-30 04:45] LABS: CHLORIDE 102 mEq/L (99-109); POTASSIUM 4.3 mEq/L (3.7-5.4); SODIUM 143 mEq/L (136-147)
[2016-12-30 04:47] LABS: GLUCOSE 200 mg/dL (70-99)
[2016-12-30 04:48] LABS: ANION GAP 10 MEQ/L (2-14)
[2016-12-30 04:51] LABS: GFR ESTIMATE (CALCULATED) 42 mL/min/
[2016-12-30 04:52] LABS: UREA NITROGEN (BUN) 46 mg/dL (9-23)
[2016-12-30 05:51] LABS: POINT-OF-CARE METER ID UU13113803
[2016-12-30 09:34] LABS: POINT-OF-CARE METER ID UU13113803
[2016-12-30 14:14] LABS: POINT-OF-CARE METER ID UU13113803
[2016-12-30 17:39] LABS: POINT-OF-CARE METER ID UU13113803
[2016-12-30 21:34] LABS: POINT-OF-CARE METER ID UU14314082
[2016-12-31] VITALS (24 sets, daily range): BP systolic 77–134; BP diastolic 47–94
[2016-12-31 02:13] LABS: POINT-OF-CARE METER ID UU13113748
[2016-12-31 05:22] LABS: POINT-OF-CARE METER ID UU13113748
[2016-12-31 11:25] LABS: POINT-OF-CARE METER ID UU13113748
[2016-12-31 14:12] LABS: POINT-OF-CARE METER ID UU13113748
[2016-12-31 17:42] LABS: POINT-OF-CARE METER ID UU13113748
[2016-12-31 21:45] LABS: POINT-OF-CARE METER ID UU13113748
[2017-01-01] VITALS (23 sets, daily range): BP systolic 80–145; BP diastolic 61–89
[2017-01-01 03:09] LABS: POINT-OF-CARE METER ID UU14314082
[2017-01-01 06:00] LABS: POINT-OF-CARE METER ID UU14314082
[2017-01-01 10:55] LABS: POINT-OF-CARE METER ID UU13113731
[2017-01-01 13:30] LABS: POINT-OF-CARE METER ID UU14314082
[2017-01-01 17:56] LABS: POINT-OF-CARE METER ID UU14314082
[2017-01-01 22:00] LABS: POINT-OF-CARE METER ID UU13113731
[2017-01-02] VITALS (10 sets, daily range): BP systolic 97–146; BP diastolic 72–88
[2017-01-02 02:13] LABS: POINT-OF-CARE METER ID UU13113748
[2017-01-02 05:51] LABS: POINT-OF-CARE METER ID UU13113748
== END 2017-01-02 13:15 | DRG 166 ==
LOC: EME 23:38 → 4EAST 12-20 02:22 → EDOF 12-20 02:22 → 4WEST 12-20 02:22 → ENRESERV 12-20 02:23 → 4EAST 12-20 03:32 → ENRESERV 12-24 08:32 → 4WEST 12-24 08:32
PROVIDERS: Emergency Medicine; Hospitalist; Internal Medicine Critical Care Medicine; Internal Medicine Pulmonary Disease; Physician Assistant Medical; Student in an Organized Health Care Education/Training Program
DX: J96.21 Acute and chronic respiratory failure with hypoxia (principal); I13.0 Hypertensive heart and chronic kidney disease with heart failure and stage 1 through stage 4 chronic kidney disease, or unspecified chronic kidney disease; E11.22 Type 2 diabetes mellitus with diabetic chronic kidney disease; N18.3 Chronic kidney disease, stage 3 (moderate); J15.9 Unspecified bacterial pneumonia; J98.09 Other diseases of bronchus, not elsewhere classified; I48.1 Persistent atrial fibrillation; I48.2 Chronic atrial fibrillation; I27.20 Pulmonary hypertension, unspecified; I27.81 Cor pulmonale (chronic); I50.33 Acute on chronic diastolic (congestive) heart failure; J98.11 Atelectasis; J98.6 Disorders of diaphragm; I35.0 Nonrheumatic aortic (valve) stenosis; E87.2 Acidosis; Y95 Nosocomial condition; F41.9 Anxiety disorder, unspecified; I95.9 Hypotension, unspecified; Z99.81 Dependence on supplemental oxygen; Z66 Do not resuscitate; Z51.5 Encounter for palliative care; E05.90 Thyrotoxicosis, unspecified without thyrotoxic crisis or storm; E66.9 Obesity, unspecified; E78.5 Hyperlipidemia, unspecified; K21.9 Gastro-esophageal reflux disease without esophagitis; M25.511 Pain in right shoulder; M25.512 Pain in left shoulder; Z68.34 Body mass index [BMI] 34.0-34.9, adult; Z79.01 Long term (current) use of anticoagulants; Z79.84 Long term (current) use of oral hypoglycemic drugs; Z82.3 Family history of stroke
CPT/HCPCS: 36600; 71010; 71020; 71250; 76604; 80048; 80048 91; 80053; 80076; 80162; 81003; 82803; 82948; 83735; 83880; 84100; 84145 90; 84484; 85025; 85027; 85610; 85730; 87070; 87116; 87205; 87206; 87278; 87449; 87502; 87641; 88108; 93005; 94002; 94003; 94640; 94667; 94799; 99202; 99281; 99285; C1751; C1753; J0456; J0692; J0696; J1160; J1650; J1815; J1940; J2250; J2270; J2704; J2930; J3010; J7050